=== PATIENT | female | born 1995 | race Hispanic/Latino ===

== ENCOUNTER 2024-02-10 07:15 | Observation (INO) | payer BC ==
[~2024-02-10] VITALS: Ht 167.6 cm; Wt 77.6 kg
[~2024-02-10 07:15] MED LIST: FOLI1TAB15 PO; PNV1TABL17 PO
[2024-02-10 07:17] VITALS: BP 136/92; PULSE 96; RESP 18
[2024-02-10 08:14] LABS: APPEARANCE,URINE CLEAR (CLEAR); BILIRUBIN,URINE NEGATIVE (NEGATIVE); COLOR,URINE LIGHT-YELLOW (YELLOW); GLUCOSE, URINE (UA) NEGATIVE (NEGATIVE); KETONES,URINE NEGATIVE (NEGATIVE); LEUKOCYTE ESTERASE ,URINE 500 Leu/uL (NEGATIVE); NITRATE,URINE NEGATIVE (NEGATIVE); OCCULT BLOOD,URINE MODERATE (NEGATIVE); PROTEIN,URINE NEGATIVE (NEGATIVE); UROBILINOGEN,URINE 0.2 mg/dL (0.2-1.0)
[2024-02-10 08:23] LABS: ADD UA MICROSCOPIC YES
[2024-02-10 08:25] LABS: BACTERIA,URINE RARE /HPF (None Seen); SQUAMOUS EPITHELIAL CELL,UR FEW /HPF (0-2)
[2024-02-12] MEDS ORDERED: PREN1TAB26 PO (16:30)
== END 2024-02-10 09:02 | disposition home or self-care (01) ==
LOC: EDH 07:15 → LDH 07:29
PROVIDERS: ADMIT Obstetrics & Gynecology; ATTEND Obstetrics & Gynecology
DX: O42.92 Full-term premature rupture of membranes, unspecified as to length of time between rupture and onset of labor (principal); Z3A.39 39 weeks gestation of pregnancy
CPT/HCPCS: 87088; 81001; 82120; G0378 ×2; G0379